=== PATIENT | male | born 1950 | race Caucasian/White ===

== ENCOUNTER 2023-08-12 20:12 | Outpatient (CLI) | payer MEDICARE, BC, SELFPAY | END 2023-08-12 20:13 | disposition home or self-care (01) | LOC: SLEEP 20:15 | PROVIDERS: PCP Student in an Organized Health Care Education/Training Program; Visit Provider Nurse Practitioner | DX: G47.33 Obstructive sleep apnea (adult) (pediatric) (principal) | CPT/HCPCS: 95811 ==

== ENCOUNTER 2024-06-25 07:52 | Outpatient (CLI) | payer MEDICARE, BC, SELFPAY ==
[2024-06-25 10:14] LABS: Albumin* 3.6 g/dL (3.3-5.0)
[2024-06-25 10:15] LABS: Hematocrit 41.2 % (37.0-53.0); Hemoglobin* 13.2 gm/dL (13.5-17.5); Mean Corpuscular HGB Conc 32 gm/dL (32-36); Mean Corpuscular Hemoglobin 30 pg (26-34); Mean Corpuscular Volume 93 fL (80-100); Platelet Count* 61 K/uL (140-440); Red Blood Count 4.41 m/uL (4.30-5.90); White Blood Count* 2.58 K/uL (4.50-11.00)
[2024-06-25 10:16] LABS: Bilirubin Direct* 0.3 mg/dL (0.0-0.5); Bilirubin Total* 1.6 mg/dL (0.1-1.5); Total Protein* 6.5 g/dL (6.0-8.3)
[2024-06-25 10:17] LABS: Alanine Aminotransferase* 66 U/L (4-50); Alkaline Phosphatase* 78 U/L (40-150); Aspartate Amino Transferase* 44 U/L (12-35)
[2024-06-25 10:30] LABS: Slide Review Reflex No
[2024-06-26 23:01] LABS: Immunoglobulin G 1416 mg/dL (768-1632)
== END 2024-06-25 07:53 | disposition home or self-care (01) ==
LOC: NPINS 07:57
PROVIDERS: PCP Internal Medicine; Visit Provider Internal Medicine
DX: K75.4 Autoimmune hepatitis (principal)
CPT/HCPCS: 80076; 82787; 85027

== ENCOUNTER 2024-06-25 08:05 | Outpatient (CLI) | payer MEDICARE, BC, SELFPAY | END 2024-06-25 08:06 | disposition home or self-care (01) | LOC: NFLDREF 08:06 | PROVIDERS: PCP Internal Medicine; Visit Provider Internal Medicine | DX: E03.9 Hypothyroidism, unspecified (principal) | CPT/HCPCS: 84443 ==

== ENCOUNTER 2024-08-04 07:49 | Outpatient (CLI) | payer MEDICARE, BC, SELFPAY ==
[2024-08-04 11:33] LABS: Hemoglobin* 13.5 gm/dL (13.5-17.5); Mean Corpuscular HGB Conc 32 gm/dL (32-36); Mean Corpuscular Hemoglobin 30 pg (26-34); Mean Corpuscular Volume 94 fL (80-100); Platelet Count* 63 K/uL (140-440); Red Blood Count 4.45 m/uL (4.30-5.90); White Blood Count* 2.32 K/uL (4.50-11.00)
[2024-08-04 11:43] LABS: Slide Review Reflex No
[2024-08-04 11:44] LABS: Albumin* 3.8 g/dL (3.3-5.0)
[2024-08-04 11:47] LABS: Alanine Aminotransferase* 83 U/L (4-50); Alkaline Phosphatase* 68 U/L (40-150); Aspartate Amino Transferase* 47 U/L (12-35); Bilirubin Direct* 0.5 mg/dL (0.0-0.5); Bilirubin Total* 2.1 mg/dL (0.1-1.5); Total Protein* 6.6 g/dL (6.0-8.3)
[2024-08-06 04:14] LABS: Immunoglobulin G 1354 mg/dL (768-1632)
== END 2024-08-04 07:50 | disposition home or self-care (01) ==
LOC: NPINS 07:52
PROVIDERS: PCP Internal Medicine; Visit Provider Internal Medicine
DX: K75.4 Autoimmune hepatitis (principal)
CPT/HCPCS: 80076; 82787; 84450; 84460; 85027

== ENCOUNTER 2024-10-16 08:23 | Outpatient (CLI) | payer MEDICARE, BC, SELFPAY ==
[2024-10-16 10:03] LABS: Basophils Percent Auto 0.9 % (0.0-3.0); Eosinophils Percent Auto 2.6 % (0.0-7.0); Hemoglobin* 13.7 gm/dL (13.5-17.5); Lymphocytes Percent Auto 15.1 % (20-44); Mean Corpuscular HGB Conc 32 gm/dL (32-36); Mean Corpuscular Hemoglobin 30 pg (26-34); Mean Corpuscular Volume 94 fL (80-100); Monocytes Percent Auto 9.9 % (0.0-11.0); Neutrophils Percent Auto 71.5 % (42.0-72.0); Platelet Count* 67 K/uL (140-440); RDW Coefficient of Variation % 15.5 % (11.5-15.5); Red Blood Count 4.59 m/uL (4.30-5.90); White Blood Count* 3.45 K/uL (4.50-11.00)
[2024-10-16 10:04] LABS: Slide Review Reflex No
[2024-10-16 11:05] LABS: Alanine Aminotransferase* 108 U/L (4-50); Aspartate Amino Transferase* 67 U/L (12-35)
[2024-10-17 23:26] LABS: Immunoglobulin G 1562 mg/dL (768-1632)
== END 2024-10-16 08:24 | disposition home or self-care (01) ==
LOC: NPINS 08:27
PROVIDERS: PCP Internal Medicine; Visit Provider Internal Medicine
DX: K75.4 Autoimmune hepatitis (principal)
CPT/HCPCS: 82787; 84450; 84460; 85025

== ENCOUNTER 2024-10-28 08:33 | Outpatient (CLI) | payer MEDICARE, BC, SELFPAY ==
[2024-10-28 08:50] LABS: Basophils Percent Auto 0.7 % (0.0-3.0); Eosinophils Percent Auto 3.5 % (0.0-7.0); Hematocrit 41.9 % (37.0-53.0); Hemoglobin* 13.6 gm/dL (13.5-17.5); Lymphocytes Percent Auto 15.2 % (20-44); Mean Corpuscular HGB Conc 33 gm/dL (32-36); Mean Corpuscular Hemoglobin 31 pg (26-34); Mean Corpuscular Volume 95 fL (80-100); Monocytes Percent Auto 9.6 % (0.0-11.0); Platelet Count* 61 K/uL (140-440); RDW Coefficient of Variation % 15.3 % (11.5-15.5); Red Blood Count 4.43 m/uL (4.30-5.90); White Blood Count* 2.82 K/uL (4.50-11.00)
[2024-10-28 08:51] LABS: Slide Review Reflex No
[2024-10-28 09:05] LABS: Alanine Aminotransferase* 113 U/L (4-50); Aspartate Amino Transferase* 79 U/L (12-35)
[2024-10-29 11:22] LABS: Immunoglobulin G 1567 mg/dL (768-1632)
== END 2024-10-28 08:34 | disposition home or self-care (01) ==
LOC: LAB 08:34
PROVIDERS: PCP Internal Medicine; Visit Provider Internal Medicine
DX: K75.4 Autoimmune hepatitis (principal)
CPT/HCPCS: 36415; 82787; 84450; 84460; 85025

== ENCOUNTER 2025-02-25 19:16 | Inpatient (IN) | payer MEDICARE, BC, SELFPAY ==
[2025-02-25] VITALS (11 sets, daily range): BP systolic 131–172; BP diastolic 61–85; PULSE 71–76; RESP 16; TEMP 38.2–38.7; O2SAT 90–96; BMI 28.6
--- OUTSIDE RECORDS SUMMARY | 2025-02-25 19:18 | XMS_ITS | Clinical Summary ---
Author Organization [facility] Address [address] [place] [id number] Care Team Providers Care Box Packer Name Role Phone Anika Arnold DO Primary Care Provider [phone] Allergies No known active allergies Medications multivitamin (MVI) tablet Take 1 tablet by mouth once daily. 0 0 Active diclofenac topical (VOLTAREN) 1 % gel Apply 4 grams to affected area(s) by topical route 4 times daily. 1 Active VITAMIN K2 ORAL Take 1 Tablet by mouth once daily. Active ascorbic acid, vitamin C, (VITAMIN C) 1,000 mg tablet Take 2,000 mg by mouth. Active cholecalciferol, Vitamin D3, 5,000 unit tab tablet Take 125 mcg by mouth. Active predniSONE (DELTASONE) 5 mg tablet Take 1 Tablet by mouth once daily. 2 Active lactobacillus acidophilus & bulgar (Lactinex) chewable tabletIndication s:Non-alcoholic cirrhosis (HC),Autoimmune hepatitis (HC),High risk medication use Chew 1 Tablet by mouth two times daily with meals. 180 Tablet 3 4 Active omeprazole (PRILOSEC) 40 mg Delayed-Release capsuleIndicatio ns:Abdominal pain, epigastric Take 1 Capsule (40 mg) by mouth once daily before a meal. 90 Capsule 3 5 Active carvediloL (COREG) 25 mg tabletIndication s:HTN (hypertension) Take 1 Tablet (25 mg) by mouth two times daily with meals. 180 Tablet 3 5 Active levothyroxine (SYNTHROID) 137 mcg tabletIndication s:Hypothyroidism (acquired) Take 1 Tablet (137 mcg) by mouth before breakfast. 90 Tablet 3 5 Active losartan (COZAAR) 25 mg tabletIndication s:HTN (hypertension) Take 1 Tablet (25 mg) by mouth once daily. 90 Tablet 3 5 Active mycophenolate (CELLCEPT) 250 mg capsule Take 750 mg by mouth. 5 12/02/19 26 Active BIPAPIndications :Obstructive sleep apnea syndrome BIPAP machine (with auto capability) (E0470) for home use at pressure: IPAP 16 cmH2O, EPAP 11 cmH2O. Choice of mask (A7030, A7034, or A7027) w/full face cushion (A7031) x1/mo, nasal cushion (A7032) x2/mo, nasal pillows (A7033) x 2/mo, oral cushion (A7028) x 2/mo, or nasal pillows (A7029) 2/mo; Heated humidifier (E0562) x 1/5 year, Humidifier chamber (A7046) x 1/6mo, Chinstrap (A7036) x 1/6mo, Tubing (A4604 or A7037) x 1/3mo, Headgear (A7035) x 1/6mo, Filters: Disposable (A7038) x 2pk/1mo & Reusable (A7039) x 1pk/6mo; Length of Need: 99 months; Frequency of use: Daily DME: [employer] 1 Each 11 5 Active Active Problems Problem Noted Date Diagnosed Date Renal cell carcinoma of left kidney 12/29/2021 Overview (12/29/2021): Mass removed in 2021. [facility] managing. No metastasis. Clear cell type, grade 2 (of 4). 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 03/15/2016 Polyp of colon 07/15/2010 Overview (12/29/2021): Colonoscopy 07/2010 polyp repeat in 3 years Colonoscopy 11/2013 polyp repeat in 5 years Colonoscopy 05/2019 polyps, repeat in 5 years Colonoscopy 07/2010 polyp repeat in 3 years Colonoscopy 11/2013 polyp repeat in 5 years Colonoscopy 05/2019 polyps, repeat in 5 years Resolved Problems Problem Noted Date Diagnosed Date Resolved Date Encounter for long-term (cur rent) use of insulin 12/29/2021 12/29/2021 Encounters Date Type Department Care Team Description 12/23/2024 3:00 PM CDT Telemedicine [facility] [place] [address] [place] [address] Digna Roy PA Sleep Follow-up 12/23/2024 Travel from Last 3 Months Immunizations Immunization Administration Dates Next Due HepA-HepB (Twinrix) 09/21/2017,10/27/2016,2016 Hepatitis A (Adult) 09/25/2016 Hepatitis B (Adult) 09/25/2016 Influenza RIV4 (Age 18+ Year s) PRESERV FREE 03/06/2020 Influenza, High-dose Inactivated 018,02/25/2017,02/25/2017,2015 Influenza, IIV3 (Age >=3 years) 05/05/2010,03/07 Influenza, IIV4 04/17/2014 Influenza, Inactivated IIV3 (Age 65+ Years) Preserv Free 02/20/2019 Pneumococcal Poly,23-Valent (Pneumovax) 09/21/2017 Pneumococcal conj 13-Valent (Prevnar 13) 03/01/2016 Td (Age >=7 Years) 05/11/2006 Tdap 06/16/2020,04/17/2014,05/11/2006 Zoster (Zostavax-ZVL, live) 04/17/2014 Family History Medical History Relation Name Comments Diabetes Father Hypertension Father Hypertension Mother Other Mother colon polyps Lupus Sister Relation Name Status Comments Father Mother Alive Sister Social History Tobacco Use Types Packs/Day Years Used Date Smoking Tobacco: Never Smokeless Tobacco: Never Tobacco Cessation:Counseling Given: Yes Alcohol Use Standard Drinks/Week Comments No 0 (1 standard drink = 0.6 oz pur e alcohol) PHQ-2 Answer Date Recorded PHQ-2 TOTAL SCORE 0 06/10/2024 Social Connections Answer Date Recorded Do you often feel lonely or isolated from those around you? 0 06/09/2024 Financial Resource Strain Answer Date R ecorded Difficulty of Paying Living Expenses 3 06/09/2024 Difficulty of Paying Living Expenses Not on file 06/09/2024 Food Insecurity Answer Date Recorded Do you worry your food will run out before you are able to buy more? 1 06/09/2024 Transportation Needs Answer Date Record ed Does lack of transportation keep you from medica l appointments? 1 06/09/2024 Does lack of transportation keep you from work, meetings or getting things that you need? 1 06/09/2024 Housing Stability Answer Date Recorded What is your housing situation today? 1 06/09/2024 Utilities Answer Date Recorded Do you have trouble paying f or utilities (for example, heat, electricity, water, phone)? 1 06/09/2024 Sex and Gender Information Value Date Recorded Sex Assigned at Not on file Legal Sex Male 6:29 AM MASKING MACHINE OPERATOR Gender Identity Not on file Sexual Orientation Not on file Obstetrics History Last Filed Vital Signs Vital Sign Reading Time Taken Comments Blood Pressure 139/78 06/10/2024 7:30 AM MASKING MACHINE OPERATOR rec heck Pulse 52 06/10/2024 7:26 AM MASKING MACHINE OPERATOR Temperature 36.6 C (97.8 F) 04/18/2021 7:10 AM MASKING MACHINE OPERATOR Respiratory Rate 18 04/01/2019 7:54 AM CDT Oxygen Saturation 98% 06/10/2024 7:26 AM MASKING MACHINE OPERATOR Inhaled Oxygen Concentration - - Weight 96.3 kg (212 lb 6.4 oz) 06/10/2024 7:26 A M MASKING MACHINE OPERATOR Height 179.5 cm (5' 10.67) 06/10/2024 7:[address] Body Mass Index 29.9 06/10/2024 7:26 AM MASKING MACHINE OPERATOR Plan of Treatment Health Maintenance Due Date Last Done Comments COVID-19 vaccine series (#1) 1955 Zoster (shingles) series for age 50+ (1 of 2) 06/12/2014 04/17/2014 Colonoscopy through age 75 05/16/202405/16, 05/16/2019, 05/16/2019, Additional history exists Influenza Vaccine (#1) 2025 , 02/20/2019, 01/23/2018, Additional history exists RSV vaccine for adults or (1 - 1-dose 75+ series) 2025 BMI (ht and wt on same day) for age 18+ 06/10/2025 06/10/2024, 06/11/2023, 06/08/2022, Additional history exists Depression screening for age 12+ 06/10/2025 06/10/2024, 06/10/2024, 06/11/2023, Additional history exists Medicare Wellness for age 65+ 06/11/2025, 06/11/2023, 06/08/2022, Additional history exists Lipids for age 45-75 06/08/2027 06/08/2022, 04/06/2021, 01/23/2019, Additional history exists Tetanus booster 06/16/2030 06/16/2020, 04/04, 05/11/2006, Additional history exists Hepatitis C screening for ag e 18-79 Completed 03/22/2016 (Completed outsid e of Ricky) Hepatitis B series for 19+ Completed 09/21, 10/27/2016, 09/25/2016, Additional history exists Pneumococcal series for age 50+ Completed 8, 03/01/2016 Procedures Procedure Name Priority Date/Time Associated Diagnosis Comments LC LIPID PANEL AND CHOL/HDL RATIO Routine 06/08/2022 8:05 AM MASKING MACHINE OPERATOR Hyperlipidemia, unspecified hyperlipidemia type COLONOSCOPY 05/16/2019 9:12 AM MASKING MACHINE OPERATOR from Last 3 Months or Most Recently Relevant to Health Maintenance Results * LC LIPID PANEL AND CHOL/HDL RATIO (06/08/2022 8:05 AM MASKING MACHINE OPERATOR) Cholesterol, Total 146 100 - 199 mg/dL 06/13/2022 2:07 AM MASKING MACHINE OPERATOR [facility]) Triglycerides 82 0 - 149 mg/dL 06/13/2022 2:07 AM [facility] ([facility]) HDL Cholesterol 41 >39 mg/dL 2:07 AM [facility] ([facility]) VLDL Cholesterol Nasim 16 5 - 40 mg/dL 06/13/2022 2:07 AM [facility] ([facility]) LDL Chol Calc ([facility]) 89 0 - 99 mg/dL 06/13/2022 2:07 AM [facility] ([facility]) T. Chol/HDL Ratio 3.6 0.0 - 5.0 ratio 06/13/2022 2:07 AM [facility] ([facility]) Comment: T. Chol/HDL Ratio Men Women 1/2 Avg.Risk 3.4 3.3 Avg.Risk 5.0 4.4 2X Avg.Risk 9.6 7.1 3X Avg.Risk 23.4 11.0 Blood BLOOD SPECIMEN / Unknown Venipuncture / Unknown 06/08/2022 8:05 AM MASKING MACHINE OPERATOR 06/08/2022 8:11 AM MASKING MACHINE OPERATOR Narrative [facility] ([facility]) - 06/13/2022 2:07 AM MASKING MACHINE OPERATOR Performed at: [address] [place] [address] [employer] [address] [place] [id number] Small Engine Technician: Joselo Singh MD, Phone: [phone] us Anika Arnold DO SEND OUTS Final Result [facility] ([facility]) [address] [place] [address], * COLONOSCOPY (05/16/2019 9:12 AM MASKING MACHINE OPERATOR) 05/16/2019 9:12 AM MASKING MACHINE OPERATOR Narrative Transcriptions Mitchel Church MD - 05/16/2019 10:20 AM CST Patient Name: Jevon Bhagat Procedure Date: 05/16/2019 Gender: Male Date of : 1950 Admit Type: Outpatient Procedure: Colonoscopy Proceduralist: Mitchel Church MD , Jodie Olivia (Nurse) Indications/Pre-Op Diagnosis: Surveillance: Personal history ofadenomatous polyps on last colonoscopy 5 years ago, Last colonoscopy: November 2013 Medications: Fentanyl 100 micrograms IV, Midazolam 2 mgIV, The level of sedation administered wasmoderate Procedure Description: The patient had risks, benefits and alternatives explained to andgave informed consent. The patient had a stable cardiopulmonary status and judged an adequate candidate for conscious sedation. The [id number] was passed through the anus and advanced tothe cecum, identified by appendiceal orifice and ileocecal valve. The colonoscopy was performed without difficulty. The patient toleratedthe procedure well. The quality of the bowel preparation was good. The ileocecal valve, appendiceal orifice, and rectum were photographed. Complications: No immediate complications. Estimated Blood Loss & Specimen: Estimated blood loss: none. Specimen collected - Yes and sent to Laboratory Findings: The perianal and digital rectal examinations were normal. Two sessile polyps were found in the transverse colon. The polypswere 3 mm in size. These polyps were removed with a cold biopsy forceps. Resection and retrieval were complete. A 4 mm polyp was found in the descending colon. The polyp wassessile. The polyp was removed with a cold snare. Resection and retrieval were complete. Non-bleeding internal hemorrhoids were found during retroflexion. The hemorrhoids were mild. Impressions/Post-Op Diagnosis: - Two 3 mm polyps in the transverse colon, removed with a cold biopsy forceps. Resected and retrieved. - One 4 mm polyp in the descending colon, removed with a cold snare. Resected and retrieved. - Non-bleeding internal hemorrhoids. Recommendation: - Patient has a contact number available for emergencies. The signsand symptoms of potential delayed complications were discussed with the patient. Return to normal activities tomorrow. Written discharge instructions were provided to the patient. - Resume previous diet. - Continue present medications. - Await pathology results. - Repeat colonoscopy is recommended. The colonoscopy date will be determined after pathology results from today's exam become available for review. Moderate Sedation: Moderate (conscious) sedation was administered by the endoscopy nurse and supervised by the endoscopist. The following parameters were monitored: oxygen saturation, heart rate, respiratory rate, blood pressure, adequacy of pulmonary ventilation and reponse to care. Please refer to the patien'ts medical record flowsheets and nursing notes for moderate sedation details. Total physician intraservice time was 24 minutes. Mitchel Church MD 05/16/2019 10:20:33 AM This report has been signed electronically. Note Initiated On: 05/16/2019 9:12 AM Procedure Code(s): --- Professional --- 33676, Colonoscopy, flexible; with removalof tumor(s), polyp(s), or other lesion(s) bysnare technique 61221, 59, Colonoscopy, flexible; withbiopsy, single or multiple Diagnosis Code(s): --- Professional --- Z86.010, Personal history of colonicpolyps D12.3, Benign neoplasm of transverse colon (hepatic flexure or splenic flexure) D12.4, Benign neoplasm of descending colon K64.8, Other hemorrhoids CPT copyright 2018 [employer]. All rights reserved. The codes documented in this report are preliminary and upon coder operator reviewmay be revised to meet current compliance requirements. Scope In: 9:51:44 AM Scope Withdrawal Time 0 hours 12 minutes 50 seconds Scope Out: 10:13:17 AM us Mitchel Church MD PROCEDURE ORD Final Res ult from Last 3 Months or Most Recently Relevant to Health Maintenance Insurance MEDICARE PB ONLY MEDICARE PART A HB ONLY MEDICARE PART B HB ONLY [facility] FED EMP Member Subscriber Plan / Payer (Ef fective 2024-Present) Name:Jevon Bhagat Relation to Subscriber:Spouse Name:Neli Bhagat Date of :1954 (Home) [address]: [address] [place] [address] Payer ID:[id number] (NAIC) Group ID:[id number] Type:Not on file Address: [address] [address] [place] [address] Care Teams Box Packer Relationship Specialty Start Date End Date Anika Arnold DO [address] [place] [address] PCP - General Family Practice 12/29/21
--- OUTSIDE RECORDS SUMMARY | 2025-02-25 19:18 | XMS_ITS | Clinical Summary ---
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 For routine questions regarding patient records, call [phone] during business hours, M-F 8:00 AM - 5:00 PM Central Time. Record requests for emergency care only can be directed to [phone] at any time.[facility] Allergies No known active allergies Medications * This document contains information received from the source organization and may not represent a complete record from that organization. multivitamin tablet Take 1 tablet by mouth every morning. 0 Active ascorbic acid, vitamin C, (VITAMIN C) 1,000 mg tablet Take 2,000 mg by mouth daily. Active levothyroxine (SYNTHROID, LEVOTHROID) 125 mcg tablet TAKE ONE TABLET BY MOUTH ONE TIME DAILY 90 tablet 3 2 Active Additional Information Patient taking differently: 125 mcg oral Daily before morning meal, Reported on 07/29/2021 cholecalciferol (Vitamin D3) 125 mcg (5,000 Unit) tablet Take 125 mcg by mouth 2 (two) times a day. Active zinc gluconate 50 mg tablet Take 50 mg by mouth daily. Active VITAMIN K2 ORAL Take 1 tablet by mouth daily. Active lactobacillus acidophilus & bulgar 1 million cell chewable tablet CHEW AND SWALLOW ONE TABLET BY MOUTH ONE TIME DAILY BEFORE DINNER. 3 Active carvediloL (COREG) 25 mg tabletIndication s:Hepatitis Autoimmune (HCC),Thrombocyt openia,Other Cirrhosis Of Liver (HCC) Take 1 tablet (25 mg total) by mouth 2 (two) times a day. 180 tablet 2 3 Active losartan (COZAAR) 25 mg tabletIndication s:Hepatitis Autoimmune (HCC),Thrombocyt openia,Other Cirrhosis Of Liver (HCC) Take 1 tablet (25 mg total) by mouth daily. 90 tablet 3 3 Active omeprazole (PriLOSEC) [address] capsuleIndicatio ns:Hepatitis Autoimmune (HCC),Gastroesop hageal Reflux Disease Without Esophagitis Take 1 capsule (40 mg total) by mouth every morning before breakfast. 90 capsule 2 3 Active diclofenac sodium (VOLTAREN) 1 % gel Apply 4 g topically 4 (four) times a day. to affected area(s) 100 g 3 4 Active predniSONE (Deltasone) 5 mg tabletIndication s:Hepatitis Autoimmune (HCC),Thrombocyt openia,Other Cirrhosis Of Liver (HCC) TAKE ONE TABLET BY MOUTH ONE TIME DAILY 90 tablet 3 4 Active mycophenolate (CellCept) 250 mg capsuleIndicatio ns:Hepatitis Autoimmune (HCC),Thrombocyt openia,Other Cirrhosis Of Liver (HCC) Take 3 capsules (750 mg total) by mouth 2 (two) times a day. Do not break, cut, or open capsules. 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 Mass Adrenal Bilateral 03/15/2016 Polyp Colon 07/15/2010 Overview (07/29/2021): Colonoscopy 07/2010 polyp repeat in 3 years Colonoscopy 11/2013 polyp repeat in 5 years Colonoscopy 05/2019 polyps, repeat in 5 years Resolved Problems Problem Noted Date Diagnosed Date Resolved Date Hepatitis Autoimmune 01/31/2018 022 Immunizations Immunization Administration Dates Next Due HZV (ZOSTAVAX) 04/17/2014 HepA / HepB 09/21/2017,10/27/2016,09/16/2016 HepA Adult 09/25/2016 HepB Adult 09/25/2016 Influenza TIV (IM) 02/20/2019 Influenza, Seasonal, Injectable 05/05/2010,03/07 PCV13 03/01/2016 PPSV23 09/21/2017 Td (Adult), adsorbed 05/11/2006 Tdap 06/16/2020,04/17/2014,05/11/2006 influenza trivalent high dose (HD)(PF) 8,02/25/2017,03/01/2016 influenza vaccine QV(FLUBLOK ) (18 years or older) (PF) 03/06/2020 influenza vaccine quad (FLUZ ONE/FLUARIX) (6 months and older)(PF) 04/17/2014 Family History Medical History Relation Name Comments Hypertension Father yves gleason Relation Name Status Comments Father yves gleason Alive Social History Tobacco Use Types Packs/Day Years Used Date Smoking Tobacco: Never Smokeless Tobacco: Never Tobacco Cessation:Counseling Given: Not Answered Alcohol Use Standard Drinks/Week Comments Never 0 (1 standard drink = 0.6 oz pur e alcohol) [facility] Utilities Answer Date Recorded In the past 12 months has e [employer], gas, oil, or water [employer] threatened to shut off services in your home? No 03/19/2024 Humiliation, Afraid, Rape, and Kick questionnair e Answer Date Recorded Within the last year, have y ou been afraid of your partner or ex-partner? Patient declined 10/26/2022 Within the last year, have y ou been humiliated or emotionally abused in other ways by your partner or ex-partner? Patient declined 10/26/2022 Within the last year, have y ou been kicked, hit, slapped, or otherwise physically hurt by your partner or ex-partner? Patient declined 10/26/2022 Within the last year, have y ou been raped or forced to have any kind of sexual activity by your partner or ex-partner? Patient declined 10/26/2022 Hunger Vital Sign Answer Date Recorded Within the past 12 months, y ou worried that your food would run out before you got the money to buy more. Never true 03/19/20 24 Within the past 12 months, t he food you bought just didn't last and you didn't have money to get more. Never true 03/19/2024 PRAPARE - Transportation Answer Date Re corded In the past 12 months, has l ack of transportation kept you from medical appointments or from getting medications? No 03/04 In the past 12 months, has l ack of transportation kept you from meetings, work, or from getting things needed for daily living? No 03/19/2024 Housing Stability Answer Date Recorded What is your living situation today? I have a [facility] place to live 03/19/2024 Education Answer Date Recorded What is the highest level of school you have completed or the highest degree you have received? 12th grade 12/14/2018 Sex and Gender Information Value Date Recorded Sex Assigned at Male 02/08/2021 8:34 AM CDT Legal Sex Male 11:27 PM [employer] Gender Identity Male 12/13/2017 9:27 AM CDT Sexual Orientation Straight 12/13/2017 9: 27 AM CDT Last Filed Vital Signs Vital Sign Reading Time Taken Comments Blood Pressure 140/69 08/27/2024 10:16 AM CDT Pulse 49 08/27/2024 10:16 AM CDT Temperature 36.5 C (97.7 F) 08/27/2024 10:16 AM CDT Respiratory Rate 18 08/27/2024 10:16 AM CDT Oxygen Saturation 95% 08/01/2021 3:30 PM [employer] Inhaled Oxygen Concentration - - Weight 94.6 kg (208 lb 8.9 oz) 08/27/2024 10:12 AM CDT Height 185.1 cm (6' 0.87) 08/27/2024 10:12 AM C DT Body Mass Index 27.61 08/27/2024 10:12 AM CDT Plan of Treatment Upcoming Encounters Date Type Department Care Team (Late st Contact Info) Description 03/19/2025 10:50 AM CDT Appointment Department of Laboratory Medicine and Pathology, [facility], in [place], [place] [address] [place] [address] Sonja Gibson M.B.B.S. [address] [place] [address] 03/19/2025 11:30 AM CDT Appointment Department of Radiology, [facility], in [place], [place] [address] [place] [address] Sonja Gibson M.B.B.S. [address] [place] [address] 03/27/2025 1:40 PM CDT Virtual Visit Division of Gastroenterology in [place], [place] [address] [place] [address] Sonja Gibson M.B.B.S. [address] [place] [address] Health Maintenance Due Date Last Done Comments CT Colonography 1950 Cologuard 1950 COVID-19 Vaccine (#1) 1955 Zoster Vaccines (1 of 2) 06/12/2014 04/17/2014 Colonoscopy 05/16/2024 05/16/2019, 06/2013 (Performed elsewhere) Colorectal Cancer Surveillance 05/16/2024 Depression Screening (Annual PHQ-2) 06/04/2024 Fall Risk Screen (Annual) 06/04/2024 Influenza Vaccine (#1) 2025 , 02/20/2019, 01/23/2018, Additional history exists RSV vaccine - (32-36 weeks) or 60+ years (1 - 1-dose 75+ series) 2025 Abdominal Ultrasound 02/27/2025 08/27/2024, 08/26/2024, 03/21/2024, Additional history exists Thyroid Stimulating Hormone (TSH) test for thyroid function 06/25/2025 06/25/2024, 08/02/2023, 06/11/2023, Additional history exists Creatinine Level (Kidney Function Test) 08/26/2025 08/26/2024, 06/10/2024, 03/21/2024, Additional history exists Potassium Level 08/26/2025 08/26/2024, 12/2024, 03/21/2024, Additional history exists Sodium Level 08/26/2025 08/26/2024, 12/2024, 03/21/2024, Additional history exists Fasting Glucose for Diabetes Screening 08/27/2027 08/26/2024, 06/10/2024, 03/21/2024, Additional history exists DTaP,Tdap,and Td Vaccines (4 - Td or Tdap) 06/16/2030 06/16/2020, 04/17/2014, 05/11/2006, Additional history exists Hepatitis B Screening Discontinued 03/22/2016 Hepatitis C Screening Completed 03/22/2016 Hepatitis A Vaccines Completed 09/21/2017, 10/27/2016, 09/25/2016, Additional history exists Hepatitis B Vaccines Completed 09/21/2017, 10/27/2016, 09/25/2016, Additional history exists Pneumococcal vaccine (50+ years) Completed 09/21/2017, 03/01/2016 Abdominal Aortic Aneurysm (AAA) Screen Discontinued 08/27/2024, 03/21/2024, 09/13/2023, Additional history exists HPV Vaccines Aged Out No longer eligi ble based on patient's age to complete this topic IPV Vaccines Aged Out No longer eligi ble based on patient's age to complete this topic Procedures Procedure Name Priority Date/Time Associated Diagnosis Comments US ABDOMEN COMPLETE RAD - Routine (most inpatients and all outpatients) 08/27/2024 9:44 AM CDT Unspecified Cirrhosis Of Liver (HCC) BASIC METABOLIC PANEL, S/P Routine 08/26/2024 12:55 PM CDT 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 Thrombocytopenia Gastroesophageal Reflux Disease Without Esophagitis Esophageal Varices Without Bleeding (HCC) THYROID-STIMULATI NG HORMONE-SENSITIVE (S-TSH) Routine 06/25/2024 7:31 AM [employer] HCV AB SCRN W/REFLEX TO HCV PCR, S Routine 03/22/2016 7:57 AM CDT HEPATITIS B SURFACE ANTIGEN Routine 03/22/2016 7:57 AM CDT from Last 3 Months or Most Recently Relevant to Health Maintenance Results * US Abdomen Complete (08/27/2024 9:44 AM CDT) Anatomical Region Laterality Modality Abdomen, Ultrasound RST LOS, Ultrasound ARZ LOS, Ultrasound FLA LOS N/A Ultrasound Impressions 08/27/2024 10:17 AM CDT 1. Coarse hepatic echotexture consistent with chronic parenchymal disease. No focal hepatic observation identified sonographically. LI-RADS 1B. 2. Splenomegaly. Narrative 08/27/2024 10:17 AM CDT EXAM: US ABDOMEN COMPLETE COMPARISON: Abdominal MR 08/26/2024. Abdominal ultrasound 03/21/2024. FINDINGS: Liver: Coarse echotexture consistent with chronic parenchymal disease. No focal hepatic observation identified sonographically. Ultrasound LI-RADS score is as follows: Ultrasound Category: US-1: Negative (No US evidence of HCC). Recommend continued routine surveillance. Visualization Score: B: Moderate limitations (limitations may obscure small masses, especially < 1 cm). Ultrasound LI-RADS is a standardized system for imaging technique, interpretation, reporting, and data collection for screening or surveillance ultrasound exams in patients at risk for developing HCC. Ultrasound LI-RADS is supported and endorsed by the [employer]. More information can be found on the following link [email or web address] Gallbladder: Normal. Intrahepatic ducts: Not dilated. Common duct: Not dilated. Pancreas: Normal where seen. Right kidney: Length: 11.1 cm. Normal echogenicity. No hydronephrosis. Likely exophytic renal cyst measuring up to 3.3 cm. Left kidney: Length: 11.8 cm. Normal echogenicity. No hydronephrosis. Post ablation changes, better characterized on MR abdomen 08/26/2024. Small renal cysts. Spleen: Splenomegaly. Spleen length: 16.3 cm, previously 17.7 cm on 03/21/2024. Aorta: Normal caliber. IVC: Normal where seen. Ascites: None. Procedure Note Jaykel, Killian J, M.D. - 08/27/2024 EXAM: US ABDOMEN COMPLETE COMPARISON: Abdominal MR 08/26/2024. Abdominal ultrasound 03/21/2024. FINDINGS: Liver: Coarse echotexture consistent with chronic parenchymal disease. Nofocal hepatic observation identified sonographically. Ultrasound LI-RADS score is as follows: Ultrasound Category: US-1: Negative (No US evidence of HCC). Recommendcontinued routine surveillance. Visualization Score: B: Moderate limitations (limitations may obscuresmall masses, especially < 1 cm). Ultrasound LI-RADS is a standardized system for imaging technique,interpretation, reporting, and data collection for screening orsurveillance ultrasound exams in patients at risk for developing HCC.Ultrasound LI-RADS is supported and endorsed by the [employer]. More information can be found on thefollowing [email or web address] Core.[email or web address] Gallbladder: Normal. Intrahepatic ducts: Not dilated. Common duct: Not dilated. Pancreas: Normal where seen. Right kidney: Length: 11.1 cm. Normal echogenicity. No hydronephrosis. Likely exophyticrenal cyst measuring up to 3.3 cm. Left kidney: Length: 11.8 cm. Normal echogenicity. No hydronephrosis. Post ablationchanges, better characterized on MR abdomen 08/26/2024. Small renalcysts. Spleen: Splenomegaly. Spleen length: 16.3 cm, previously 17.7 cm on03/21/2024. Aorta: Normal caliber. IVC: Normal where seen. Ascites: None. IMPRESSION: 1. Coarse hepatic echotexture consistent with chronic parenchymal disease.No focal hepatic observation identified sonographically. LI-RADS 1B. 2. Splenomegaly. us Basil Sawyer M.D. G US PROCEDURES Final Result * Basic Metabolic Panel (08/26/2024 12:55 PM CDT) Potassium, S 4.4 3.6 - 5.2 mmol/L 08/26/2024 3:26 PM CDT DTL Sodium, S 141 135 - 145 mmol/L 08/26/2024 3:26 PM CDT DTL Chloride, S 105 98 - 107 mmol/L 08/26/2024 3:26 PM CDT DTL Bicarbonate, S 24 22 - 29 mmol/L 08/26/2024 3:26 PM CDT DTL Anion Gap 12 7 - 15 08/26/2024 3:26 PM CDT DTL BUN (Blood Urea Nitrogen), S 12 8 - 24 mg/dL 08/26/2024 3:26 PM CDT DTL Creatinine 0.85 0.74 - 1.35 mg/dL 08/26/2024 3:26 PM CDT DTL Estimated GFR (eGFR) >90 >=60 mL/min/BSA 08/26/2024 3:26 PM CDT DTL Comment: Estimated GFR calculated using the 2020 CKD_EPI creatinine equation. Calcium, Total, S 9.4 8.8 - 10.2 mg/dL 08/26/2024 3:26 PM CDT DTL Glucose, S 105 70 - 140 mg/dL 08/26/2024 3:26 PM CDT DTL Blood (Blood, Venous) 08/26/2024 12:55 PM CDT 08/26/2024 1:40 PM CDT Sonja Muhammad LAB BLOOD ADD-ON Final Result [facility] [address] [place] [address], [facility] [address] [place] [address] * S-TSH (Thyroid-Stimulating Hormone - Sensitive) (06/25/2024 7:31 AM [employer]) EXT TSH, Sensitive 3.290 0.270 - 4.200 uIU/ML [facility] 06/25/2024 7:3 1 AM [employer] Narrative [facility] - 06/25/2024 2:00 PM [employer] External results verified in Extract by Jamila Hidalgo on 06/25/2024 at 01:59 PM. us Ordering Provider External M.D. LAB BLOOD ADD-ON Final Result Performing Organization Address [facility]/ZIP Co de Phone Number [facility] [address] [phone] * HCV AB Scrn w/Reflex to HCV PCR, S (03/22/2016 7:57 AM CDT) HCV Ab Screen, S Negative Negative [facility] Comment:Mefamx-cd-ajqciq rat io is <1.00. 03/22/2016 7:57 AM CDT 03/22/2016 7:57 AM CDT us Vianey Dillard APRN, C.N.P. LAB MICROBIOLOGY - BL OOD ORDERABLES Final Result Performing Organization Address [facility] Co de Phone Number [facility] [address] * Hepatitis B Surface Antigen (03/22/2016 7:57 AM CDT) HBs Antigen, S Negative Negative [facility] 03/22/2016 7:57 AM CDT 03/22/2016 7:57 AM CDT us Vianey Dilladr APRN, C.N.P. LAB MICROBIOLOGY - BL OOD ORDERABLES Final Result Performing Organization Address [facility] Co de Phone Number [facility] [address] from Last 3 Months or Most Recently Relevant to Health Maintenance Insurance MEDICARE [facility] Member Subscriber Plan / Payer (Ef fective 2016-Present) Name:JEVON GLEASON C Relation to Subscriber:Spouse Name:Jevon Gleason Date of :1954 Address: [address] [place] [id number] Payer ID:Not on file Group ID:[id number] Type:Indemnity Address: [facility] [address] [place] [address]
--- NOTE | 2025-02-25 19:36 | ED.GENADULT ---
HPI - General Adult General Chief complaint: Back Injury/Pain Stated complaint: Back Injury Time Seen by Provider: 02/25/25 19:31 History of Present Illness HPI narrative: scraping huynh yesterday and started having lower mid back pain that radiates to both hips. normally takes prednisone and antirejection drugs daily, states took additional 20 of prednisone today to help with pain. tylenol LD at noon. no BM or urinary incont. 75-year-old man presenting to emergency department with complaint of low back and bilateral outer/posterior hip pain. Can barely stand due to pain in his hips that radiates up into the low back. Could not get out of bed. Does have a history of intermittent low back pain and does have a history of bilateral hip pain. 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 Yesterday had been scraping huynh and moving some druze use. Did not feel it was particularly heavy as he was lifting an and by himself. Does not recall specific injury. This morning around 10:00 a.m. when he went to meet with his crew he noted that he was starting to have some low back and hip pain. This has only escalated. Went to the chiropractor around 2:00 p.m.. This is a chiropractor he has seen before. Did have treatment on inversion table in some manipulation of the low back/hips. He says that the chiropractor noted that his low back was a little swollen at that time. Did take some acetaminophen around noon. He has not noted any rash or fever. No chills. No rash. No sore throat. No diarrhea. No headache. No neck pain. No cough or cold symptoms. Just was not very hungry, did not feel like eating then but no nausea. Does have a history of hypothyroid and autoimmune hepatitis; notes stage IV.. Does take regular prednisone and CellCept and took an extra 20 mg of prednisone today. It is not clear to me that there is a history of neurogenic/radicular back pain. Presents now to the emergency department at 7:30 p.m. Related Data Home Medications ?Medication ?Instructions ?Recorded ?Confirmed Lactobacillus acidoph-L.bulgaricus 1 tab PO ONCE 06/25/24 06/25/24 1 million cell chewable tablet ascorbic acid (vitamin C) 1,000 mg 1 g PO Q6H 06/25/24 06/25/24 capsule carvedilol 25 mg tablet 25 mg PO BID 06/25/24 06/25/24 cholecalciferol (vitamin D3) 125 125 mcg PO QDAY 06/25/24 06/25/24 mcg (5,000 unit) tablet diclofenac sodium 1 % topical gel 4 g topical QID 06/25/24 06/25/24 digestive enzymes 1 cap PO QDAY 06/25/24 06/25/24 levothyroxine 137 mcg tablet 137 mcg PO QAM 06/25/24 06/25/24 losartan 25 mg tablet 25 mg PO DAILY 06/25/24 06/25/24 multivitamin 1 tab PO QAM 06/25/24 06/25/24 mycophenolate mofetil 250 mg 1,000 mg PO BID 06/25/24 06/25/24 capsule omeprazole 40 mg capsule,delayed 40 mg PO DAILY 06/25/24 06/25/24 release prednisone 5 mg tablet 5 mg PO DAILY 06/25/24 06/25/24 vitamin K2 100 mcg capsule 100 mcg PO QDAY 06/25/24 06/25/24 Allergies Allergy/AdvReac Type Severity Reaction Status Date / Time No Known Drug Allergies Allergy Verified 06/25/24 07:47 Review of Systems Status of ROS: Reports: 6 or more systems reviewed and unremarkable except as noted in History and below [facility] Medical History (Updated 02/26/25 @ 00:21 by Abner Freeman MD) Thrombocytopenia ?D69.6 - Thrombocytopenia, unspecified (ICD-10) Hypertension ?I10 - Essential (primary) hypertension (ICD-10) Autoimmune hepatitis ?K75.4 - Autoimmune hepatitis (ICD-10) Hypothyroidism ?E03.9 - Hypothyroidism, unspecified (ICD-10) Surgical History (Updated 02/25/25 @ 22:52 by Abner Freeman MD) History of partial thyroidectomy ?E89.0 - Postprocedural hypothyroidism (ICD-10) Social History What is your current living situation?: I presently have a place to live Problems where you live: no known problems In the past 12 months, utilities in danger of being shut off: no In past 12 months, lack of transportation kept you from medical appts, meetings, work, or getting things needed for daily living: no In the past 12 mos, have been you worried that your food would run out before you had money to buy more?: never true In the past 12 mos, the food you bought just didn't last and you didn't have money to buy more?: never true Smoking Status: Never smoker How often do you have a drink containing alcohol: never AUDIT-C Alcohol total score: 0 Non-prescribed substance use: denies use How often does anyone, including family, friends and others, physically hurt you: never How often does anyone, including family, friends and others, insult or talk down to you: never How often does anyone, including family, friends and others, threaten you with harm: never How often does anyone, including family, friends and others, scream or curse at you: never Exam Narrative: Exam Narrative: Very pleasant. Little hard of hearing. Breathing easily. Clearly in pain with any transition. Skin is rather warm, dry. Scattered small curran hemangiomas over his abdomen. Male pattern balding. No scleral icterus. Oropharynx is a little sticky without lesions or erythema. Lungs with some resolving squeaks to auscultation of the mid chest. Good air movement. Neck is supple without lymphadenopathy. Back is nontender until somewhat tender generally across the low back. He is so uncomfortable with this initial exam notes a little difficult to tell. Does not appear to be this sacroiliac joints. Flexion/movement of the hips in any direction causes a good deal discomfort. Negative straight leg raise though. Appreciate swelling erythema. Good muscle tone. Lower extremities without edema. Is well-perfused generally. Abdomen is overweight and soft and nontender. On repeat exam later of the low back there is a fullness in an area 10 cm across in the low mid lumbar spine. Subtle hypervascularity here as well. Const: Vital Signs, click to edit/add: Vital Signs - 24 hr 02/25/25 19:30 02/25/25 19:35 02/25/25 20:02 Temperature 101.7 F H Pulse Rate 72 Pulse Rate [Pulse Oximeter] 76 Respiratory Rate 16 Blood Pressure Blood Pressure [Ri ght Upper Arm] 172/85 H Pulse Oximetry 93 93 96 Oxygen Delivery Me thod Room Air 02/25/25 20:30 02/25/25 21:02 02/25/25 21:18 Temperature 101.7 F H 100.7 F H Pulse Rate 76 73 Pulse Rate [Pulse Oximeter] Respiratory Rate 16 Blood Pressure 145/72 H Blood Pressure [Ri ght Upper Arm] Pulse Oximetry 94 90 Oxygen Delivery Me thod 02/25/25 23:00 02/25/25 23:26 Temperature Pulse Rate 71 74 Pulse Rate [Pulse Oximeter] Respiratory Rate 16 Blood Pressure 160/78 H Blood Pressure [Ri ght Upper Arm] Pulse Oximetry 93 94 Oxygen Delivery Me thod Documenting provider has reviewed patient's vital signs: yes Course Vital Signs Vital signs: Initial Vital Signs Temperature 101.7 F H 02/25/25 19:30 Temperature Source Temporal Artery Scan 02/25/25 19:30 Pulse Rate 76 02/25/25 19:30 Pulse Rhythm Regular 02/25/25 19:30 Respiratory Rate 16 02/25/25 19:30 Blood Pressure 172/85 H 02/25/25 19:30 Blood Pressure Mean 114 H 02/25/25 19:30 Blood Pressure Position Sitting 02/25/25 19:30 Pulse Oximetry 93 02/25/25 19:30 Oxygen Delivery Method Room Air 02/25/25 19:30 Vital Signs Temperature 101.7 F H 02/25/25 19:30 Pulse Rate 76 02/25/25 19:30 Respiratory Rate 16 02/25/25 19:30 Blood Pressure 172/85 H 02/25/25 19:30 Pulse Oximetry 93 02/25/25 19:30 Oxygen Delivery Method Room Air 02/25/25 19:30 Temperature 100.7 F H 02/25/25 21:18 Pulse Rate 74 02/25/25 23:26 Respiratory Rate 16 02/25/25 23:26 Blood Pressure 160/78 H 02/25/25 23:26 Pulse Oximetry 94 02/25/25 23:26 Oxygen Delivery Method Room Air 02/25/25 19:30 Medications Administered Medications: Generic Name Dose Route Start Last Admin Trade Name Freq PRN Reason Stop Dose Admin Sodium Chloride 500 mls @ 1,000 mls/hr 02/25/25 22:41 02/25/25 22:50 0.9 % Sodium Chloride 500 Ml IV 02/25/25 23:10 1,000 mls/hr .Q30M ONE Administration Oxycodone/Acetaminophen 2 tab 02/25/25 22:41 02/25/25 22:48 Oxycodone/Apap 5-325 Tablet PO 02/25/25 22:42 2 tab ONCE ONE Administration Discontinued Medications Generic Name Dose Route Start Last Admin Trade Name Jeff PRN Reason Stop Dose Admin Hydromorphone HCl 1 mg 02/25/25 19:48 02/25/25 19:58 Hydromorphone 0.5 Mg/0.5 Ml Inj IM 02/25/25 19:49 1 mg ONCE ONE Administration Hydromorphone HCl 0.5 mg 02/25/25 20:00 02/25/25 20:05 Hydromorphone 0.5 Mg/0.5 Ml Inj IVP 02/25/25 20:01 0.5 mg ONCE ONE Administration Sodium Chloride 1,000 mls @ 1,000 mls/hr 02/25/25 20:00 02/25/25 21:02 0.9 % Sodium Chloride 1000 Ml IV 02/25/25 20:59 Infused .Q1H ONE Infusion Ketorolac Tromethamine 30 mg 02/25/25 19:48 02/25/25 19:57 Ketorolac 30 Mg/Ml Inj IM 02/25/25 19:49 30 mg ONCE ONE Administration Medical Decision Making MDM Narrative Medical decision making narrative: Initially proposed treating pain. Appears to be having severe back pain and possible spasming with attempted movement. Presumably this was related to overuse yesterday. I think singular dosing of ketorolac would be acceptable here along with Dilaudid. I am notified then that has a fever; this would be consistent with warmth palpated on exam. Has history of immunosuppression and so do decide to investigate further. Will draw blood cultures. Standard labs. Urinalysis considering his hip pain. This might represent a urinary tract infection of some sort. Does not appear to have symptoms consistent kidney stone. No headache and pain localized to the back and hips I think less likely to have encephalitis or even maybe meningitis. Might have of viral arthralgia of some sort in areas where he typically gets pain. This could just be radicular back pain as well. Vascular disruption? This would not though explain fever either. Could be paraspinal abscess as well. Discitis? IV fluids were initiated with normal saline. Dilaudid was given 0.5 mg IV with ketorolac having already been given at 30 mg IM. Sats dipped a little bit. Noted history of sleep apnea. Labs are reassuring. CRP a little bit elevated at 1.4. On reassessment is quite improved at rest but transitioning to provide urine sample is very difficult due to intense pain in same areas. Has to use a urinal. Urinalysis ultimately clear. Temperature has improved though still feels warm last measured temp at 100.7. Unclear etiology at this point. If no fever I could presume this was simply related to low back strain of some sort but with the significant pain he continues to demonstrate, which might represent simple arthralgia, proceed with CT imaging of the lumbar spine. Will also test for potential outpatient management, pending imaging, with 2 tabs of Percocet. 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 Will scan entire abdomen and pelvis. I did independently review IV contrasted CT imaging abdomen and pelvis and reconstituted lumbar spine. Do not appreciate discrete fluid collection like abscess. Gallbladder looks particularly large but without evidence of inflammation. Bibasilar possibly atelectasis. Indication: Severe lumbar and hip pain, fever Technique: Postcontrast CT through the lumbar spine with multiplanar reformats following 101 mL Isovue 370 IV contrast. Comparison: None Findings: Alignment: Slight rightward curvature. Mild L5-S1 retrolisthesis. No acute malalignment appreciated. Bones: No acute lumbar vertebral fracture. Lumbar levels: No acute abnormality appreciated. Multilevel degenerative changes are noted. Degenerative endplate changes are present with minimal erosive appearing endplate changes at L2-3, L4-5, and L5-S1, appearance most compatible with degenerative disease but suboptimally evaluated by this modality. No high-grade central stenosis is suspected. Soft tissues: No acute paraspinal abnormality is appreciated. Impression: [id number] multilevel degenerative changes of the spine. No high-grade central or foraminal stenosis is suspected. Mild irregularities along disc spaces and endplates favored to be degenerative in nature but would be better evaluated by contrast-enhanced MRI if there is strong clinical suspicion for discitis osteomyelitis. Please note that all CT scans at this facility use dose modulation, iterative reconstruction, and/or weight-based dosing when appropriate to reduce radiation dose to as low as reasonably achievable. Dictated by Johnnie Hernandez MD @ 02/25/2025 11:40:30 PM Indication: Low back pain Technique: CT through the abdomen and pelvis following 101 mL Isovue 370 IV contrast Comparison: None Findings: Lower chest: Bibasilar atelectasis and/or scarring. Hepatobiliary: Cirrhotic morphology. Dilated gallbladder without wall thickening or adjacent stranding. Spleen: Splenomegaly. Pancreas: No acute abnormality appreciated. Adrenal glands: Indeterminate density left adrenal gland nodule. Kidneys: The right kidney demonstrates no acute abnormality. The left kidney demonstrates a mottled calcified, soft tissue, and fatty irregular region. No hydronephrosis. Bowel: No obstruction. No focal perienteric or pericolonic stranding is appreciated. The appendix is visualized and appears unremarkable. Vascular: Portosystemic shunting. Atherosclerosis. Lymph nodes: No gross lymphadenopathy. Peritoneum: No free air. No free fluid. : No acute abnormality appreciated. Soft tissues: No acute abnormality appreciated. Bones: No acute fracture. No lytic or blastic lesion. Degenerative changes of the spine and pelvis. Impression: 1. No acute abnormality appreciated. 2. Cirrhosis with stigmata of portal hypertension. 3. Mottled irregular region of the left kidney with calcifications, soft tissue, and irregular fat density. Appearance is most suggestive of prior cryoablation or radiofrequency ablation. Correlation with history and prior imaging recommended. Please note that all CT scans at this facility use dose modulation, iterative reconstruction, and/or weight-based dosing when appropriate to reduce radiation dose to as low as reasonably achievable. Dictated by Johnnie Hernandez MD @ 02/25/2025 11:56:23 PM On reassessment 25 minutes after percocet, is relatively comfortable at rest but still with significant pain with any attempted movement. Probably have not seen full effect of this medication but I am impressed at his residual pain. I have already discussed this case with hospitalist and anticipating admission for further cares at minimum pain management. Possible IV antibiotics. Contrasted MRI of lumbar spine might be indicated looking for diskitis. Chest x-ray one-view portable independently reviewed by me does appear to show any infiltrate. Marked elevation of the left hemidiaphragm. INDICATION: Fever, bibasilar atelectasis TECHNIQUE: Chest radiograph 1 view COMPARISON: None FINDINGS: The sensitivity and specificity of the exam are moderately limited by the patient`s body habitus. Mediastinum: The mediastinum is normal in appearance. The heart silhouette is normal in size and morphology. Severe elevation of the left hemidiaphragm is noted. Lung: Both lungs are unremarkable in appearance. No sign of pleural effusion seen. No pneumothorax is identified. Bone and Soft tissue: Unremarkable for age. IMPRESSION: 1. Severe elevation of the left hemidiaphragm is noted. Dictated by Supa Royal MD @ 02/26/2025 12:31:37 AM Anticipating handoff at change of shift pending formal admission from overnight hospitalist. Medical Records Medical records reviewed: Yes I reviewed the patient's medical records Lab Data Lab results reviewed: Yes I reviewed the patient's lab results Labs: Lab Results 02/25/25 02/25/25 Range/Units 20:10 23:40 WBC 5.36 (4.50-11.00) K/uL RBC 4.36 (4.30-5.90) m/uL Hgb 13.5 (13.5-17.5) gm/dL Hct 40.8 (37.0-53.0) % MCV 94 (80-100) fL MCH 31 (26-34) pg MCHC 33 (32-36) gm/dL RDW Coeff of Janis 15.2 (11.5-15.5) % Plt Count 52 L (140-440) K/uL Neut % (Auto) 88.2 H (42.0-72.0) % Lymph % (Auto) 4.9 L (20-44) % Josephine % (Auto) 6.5 (0.0-11.0) % Eos % (Auto) 0.0 (0.0-7.0) % Baso % (Auto) 0.2 (0.0-3.0) % Neut # (Auto) 4.70 (1.7-7.0) K/uL Lymph # (Auto) 0.30 L (0.90-2.90) K/uL Josephine # (Auto) 0.30 (0.00-0.90) K/UL Eos # (Auto) 0.00 (0.00-0.50) K/uL Baso # (Auto) 0.01 (0.00-0.30) K/uL Abs Immat Gran (auto) 0.01 (0.00-0.30) K/uL Imm/Tot Granulo (auto) 0.2 % Sodium 132 L (135-149) mmol/L Potassium 4.1 (3.6-5.1) mmol/L Chloride 103 (96-114) mmol/L Carbon Dioxide 23 (20-32) mmol/L Anion Gap 6 L (7-15) mEq/L BUN 14 (7-30) mg/dL Creatinine 0.6 (0.5-1.5) mg/dL Estimated Creat Clear 67.98 Estimated GFR 101 ml/min Glucose 115 (60-115) mg/dL Calcium 8.8 (8.4-10.6) mg/dL Total Bilirubin 2.6 H (0.1-1.5) mg/dL Direct Bilirubin 0.6 H (0.0-0.5) mg/dL AST 65 H (12-35) U/L ALT 110 H (4-50) U/L Alkaline Phosphatase 109 (40-150) U/L C-Reactive Protein 1.4 H (0.5-1.0) mg/dL Total Protein 7.3 (6.0-8.3) g/dL Albumin 3.8 (3.3-5.0) g/dL Lipase 66 (23-300) U/L Urine Color Yellow (Yellow) Urine Appearance Clear (Clear) Urine pH 6.0 (5.0-8.5) Ur Specific Dike 1.020 (1.000-1.030) Urine Protein 1+ A (Negative) Urine Glucose (UA) Negative (Negative) Urine Ketones 2+ A (Negative) Urine Blood Negative (Negative) Urine Nitrite Negative (Negative) Urine Bilirubin Negative (Negative) Urine Urobilinogen 1.0 (0.2-1.0) Ur Leukocyte Esterase Negative (Negative) Urine RBC 0-2 (0-2) Urine WBC 0-2 (0-5) Ur Squamous Epith Cells Few (None-Few) Urine Bacteria None (None) SARS-CoV-2 (PCR) Negative SARS-CoV-2 (Negative) Influenza Type A (PCR) Negative PCR FLU A (Negative) Influenza Type B (PCR) Negative PCR FLU B (Negative) Lab Acknowledgement Test Added Discharge Plan Discharge Clinical Impression: Low back pain, Fever Patient Disposition: Admitted As Observation Condition: Improved
[2025-02-25 20:22] LABS: Hematocrit* 40.8 % (37.0-53.0); Hemoglobin* 13.5 gm/dL (13.5-17.5); Immature Granulocytes Abs Auto 0.01 K/uL (0.00-0.30); Immature Granulocytes Pct Auto 0.2 %; Mean Corpuscular HGB Conc 33 gm/dL (32-36); Mean Corpuscular Hemoglobin 31 pg (26-34); Mean Corpuscular Volume 94 fL (80-100); RDW Coefficient of Variation % 15.2 % (11.5-15.5); Red Blood Count* 4.36 m/uL (4.30-5.90); White Blood Count* 5.36 K/uL (4.50-11.00)
[2025-02-25 20:31] LABS: Lymphocytes Absolute Auto 0.30 K/uL (0.90-2.90); Slide Review Reflex No
[2025-02-25 20:34] LABS: Chloride* 103 mmol/L (96-114); Sodium* 132 mmol/L (135-149)
[2025-02-25 20:35] LABS: Potassium* 4.1 mmol/L (3.6-5.1)
[2025-02-25 20:38] LABS: Anion Gap 6 mEq/L (7-15); Blood Urea Nitrogen* 14 mg/dL (7-30); Calcium* 8.8 mg/dL (8.4-10.6); Carbon Dioxide* 23 mmol/L (20-32); Creatinine* 0.6 mg/dL (0.5-1.5); Est. Creatinine Clearance* 67.98; Estimated Glomerular Filt Rate 101 ml/min; Glucose* 115 mg/dL (60-115)
[2025-02-25 20:54] LABS: PCR FLU A Negative PCR FLU A (Negative); PCR FLU B Negative PCR FLU B (Negative); SARS PCR* Negative SARS-CoV-2 (Negative)
[2025-02-25 21:11] LABS: Appearance Urine Clear (Clear)
--- NOTE | 2025-02-25 22:41 | CRLHL7_ITS ---
For Patients: As a result of the Century Cures Act, medical imaging exams and procedure reports are released immediately into your electronic medical record. You may view this report before your referring provider. If you have questions, please contact your health care provider. Indication: Severe lumbar and hip pain, fever Technique: Postcontrast CT through the lumbar spine with multiplanar reformats following 101 mL Isovue 370 IV contrast. Comparison: None Findings: Alignment: Slight rightward curvature. Mild L5-S1 retrolisthesis. No acute malalignment appreciated. Bones: No acute lumbar vertebral fracture. Lumbar levels: No acute abnormality appreciated. Multilevel degenerative changes are noted. Degenerative endplate changes are present with minimal erosive appearing endplate changes at L2-3, L4-5, and L5-S1, appearance most compatible with degenerative disease but suboptimally evaluated by this modality. No high-grade central stenosis is suspected. Soft tissues: No acute paraspinal abnormality is appreciated. Impression: [id number] multilevel degenerative changes of the spine. No high-grade central or foraminal stenosis is suspected. Mild irregularities along disc spaces and endplates favored to be degenerative in nature but would be better evaluated by contrast-enhanced MRI if there is strong clinical suspicion for discitis osteomyelitis. Please note that all CT scans at this facility use dose modulation, iterative reconstruction, and/or weight-based dosing when appropriate to reduce radiation dose to as low as reasonably achievable. Dictated by Johnnie Hernandez MD @ 02/25/2025 11:40:30 PM (Electronically Signed)
[2025-02-25] MEDS: OxyCODONE/APAP 5-325 TABLET 2 TAB PO (22:48)
[2025-02-25] MEDS: 0.9 % SODIUM CHLORIDE 500 ML 500 ML 1000 ML IV (22:50)
--- NOTE | 2025-02-25 23:14 | CRLHL7_ITS ---
For Patients: As a result of the Century Cures Act, medical imaging exams and procedure reports are released immediately into your electronic medical record. You may view this report before your referring provider. If you have questions, please contact your health care provider. Indication: Low back pain Technique: CT through the abdomen and pelvis following 101 mL Isovue 370 IV contrast Comparison: None Findings: Lower chest: Bibasilar atelectasis and/or scarring. Hepatobiliary: Cirrhotic morphology. Dilated gallbladder without wall thickening or adjacent stranding. Spleen: Splenomegaly. Pancreas: No acute abnormality appreciated. Adrenal glands: Indeterminate density left adrenal gland nodule. Kidneys: The right kidney demonstrates no acute abnormality. The left kidney demonstrates a mottled calcified, soft tissue, and fatty irregular region. No hydronephrosis. Bowel: No obstruction. No focal perienteric or pericolonic stranding is appreciated. The appendix is visualized and appears unremarkable. Vascular: Portosystemic shunting. Atherosclerosis. Lymph nodes: No gross lymphadenopathy. Peritoneum: No free air. No free fluid. : No acute abnormality appreciated. Soft tissues: No acute abnormality appreciated. Bones: No acute fracture. No lytic or blastic lesion. Degenerative changes of the spine and pelvis. Impression: 1. No acute abnormality appreciated. 2. Cirrhosis with stigmata of portal hypertension. 3. Mottled irregular region of the left kidney with calcifications, soft tissue, and irregular fat density. Appearance is most suggestive of prior cryoablation or radiofrequency ablation. Correlation with history and prior imaging recommended. Please note that all CT scans at this facility use dose modulation, iterative reconstruction, and/or weight-based dosing when appropriate to reduce radiation dose to as low as reasonably achievable. Dictated by Johnnie Hernandez MD @ 02/25/2025 11:56:23 PM (Electronically Signed)
[2025-02-25 23:53] LABS: Albumin* 3.8 g/dL (3.3-5.0)
[2025-02-25 23:56] LABS: Alanine Aminotransferase* 110 U/L (4-50); Alkaline Phosphatase* 109 U/L (40-150); Aspartate Amino Transferase* 65 U/L (12-35); Bilirubin Direct* 0.6 mg/dL (0.0-0.5); Bilirubin Total* 2.6 mg/dL (0.1-1.5); Total Protein* 7.3 g/dL (6.0-8.3)
[2025-02-26] VITALS (11 sets, daily range): BP systolic 90–142; BP diastolic 57–97; PULSE 61–77; RESP 16–20; TEMP 36.5–38.7; O2SAT 85–95; BMI 28.9
--- NOTE | 2025-02-26 00:01 | CRLHL7_ITS ---
For Patients: As a result of the Cures Act, medical imaging exams and procedure reports are released immediately into your electronic medical record. You may view this report before your referring provider. If you have questions, please contact your health care provider. INDICATION: Fever, bibasilar atelectasis TECHNIQUE: Chest radiograph 1 view COMPARISON: None FINDINGS: The sensitivity and specificity of the exam are moderately limited by the patient`s body habitus. Mediastinum: The mediastinum is normal in appearance. The heart silhouette is normal in size and morphology. Severe elevation of the left hemidiaphragm is noted. Lung: Both lungs are unremarkable in appearance. No sign of pleural effusion seen. No pneumothorax is identified. Bone and Soft tissue: Unremarkable for age. IMPRESSION: 1. Severe elevation of the left hemidiaphragm is noted. Dictated by Supa Royal MD @ 02/26/2025 12:31:37 AM Dictated by: Supa Royal MD @ 02/26/2025 00:32:57 (Electronically Signed)
[2025-02-26] MEDS: PIPERACILLIN/TAZOBACTAM 3.375 GM in 0.9 % SODIUM CHLORIDE Mini-bag 100 ML IVPB ×3 (01:01→12:53)
[2025-02-26] MEDS: VANCOMYCIN 2 GM/400 ML 2 GM/400 ML PIGGYBACK IVPB (01:39)
--- NOTE | 2025-02-26 02:18 | W.PM.TELEH&P ---
Telehealth- H&P: HPI History of Present Illness Date Seen: 02/26/25 Chief complaint: Back Injury Narrative: Jevon Bhagat is seen as an Interactive Telehealth visit. Jevon Bhagat is a 75 year old male with past medical history significant for hypothyroidism, autoimmune hepatitis, thrombocytopenia, who presents to the emergency department with lower back pain with radiation to bilateral hips that began the day of admission. Patient states he woke up around 5:30 AM which is his normal awakening time. He subsequently had back pain around 10 AM with associated hip pain that made it difficult for him to walk. 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 He denies any chest pain, palpitations, shortness of breath. He denies any nausea or vomiting. He does not use any walkers or canes to walk. He denies diarrhea or constipation. No sick contacts are noted. In the emergency department, he was noted to have WBC count of 5.36, hemoglobin 13.5, hematocrit 40.8, platelet count 52. Left shift was noted. Sodium of 132, potassium of 4.1, BUN of 14, creatinine 0.6. Direct bili 0.6 total bili 2.6 AST of 65 ALT of 110. Lumbar spine CT with mild to moderate multilevel degenerative changes of the spine. No high-grade central or foraminal stenosis noted. CT abdomen pelvis with cirrhosis and stigmata of portal hypertension otherwise no acute abnormality noted no acute fracture in the bones or lytic or blastic lesions were noted. In the emergency department patient was also noted to have a fever of 101.7. Given fever as well as back pain and hip pain patient was subsequently admitted for further management. Given autoimmune hepatitis as well as immunocompromise state patient was given IV Zosyn as well as IV vancomycin. Review of Systems Status of ROS: Reports: 10 or more systems reviewed and unremarkable except as noted in History and below [facility] Medical History Thrombocytopenia ?D69.6 - Thrombocytopenia, unspecified (ICD-10) Hypertension ?I10 - Essential (primary) hypertension (ICD-10) Autoimmune hepatitis ?K75.4 - Autoimmune hepatitis (ICD-10) Hypothyroidism ?E03.9 - Hypothyroidism, unspecified (ICD-10) Surgical History History of partial thyroidectomy ?E89.0 - Postprocedural hypothyroidism (ICD-10) Social History What is your current living situation?: I presently have a place to live Problems where you live: no known problems In the past 12 months, utilities in danger of being shut off: no In past 12 months, lack of transportation kept you from medical appts, meetings, work, or getting things needed for daily living: no In the past 12 mos, have been you worried that your food would run out before you had money to buy more?: never true In the past 12 mos, the food you bought just didn't last and you didn't have money to buy more?: never true Smoking Status: Never smoker How often do you have a drink containing alcohol: never AUDIT-C Alcohol total score: 0 Non-prescribed substance use: denies use How often does anyone, including family, friends and others, physically hurt you: never How often does anyone, including family, friends and others, insult or talk down to you: never How often does anyone, including family, friends and others, threaten you with harm: never How often does anyone, including family, friends and others, scream or curse at you: never Meds Home Medications and Allergies Home Medications ?Medication ?Instructions ?Recorded ?Confirmed ?Type Lactobacillus acidoph-L.bulgaricus 1 tab PO ONCE 06/25/24 06/25/24 History 1 million cell chewable tablet ascorbic acid (vitamin C) 1,000 mg 1 g PO Q6H 06/25/24 06/25/24 History capsule carvedilol 25 mg tablet 25 mg PO BID 06/25/24 06/25/24 History cholecalciferol (vitamin D3) 125 125 mcg PO QDAY 06/25/24 06/25/24 History mcg (5,000 unit) tablet diclofenac sodium 1 % topical gel 4 g topical QID 06/25/24 06/25/24 History digestive enzymes 1 cap PO QDAY 06/25/24 06/25/24 History levothyroxine 137 mcg tablet 137 mcg PO QAM 06/25/24 06/25/24 History losartan 25 mg tablet 25 mg PO DAILY 06/25/24 06/25/24 History multivitamin 1 tab PO QAM 06/25/24 06/25/24 History mycophenolate mofetil 250 mg 1,000 mg PO BID 06/25/24 06/25/24 History capsule omeprazole 40 mg capsule,delayed 40 mg PO DAILY 06/25/24 06/25/24 History release prednisone 5 mg tablet 5 mg PO DAILY 06/25/24 06/25/24 History vitamin K2 100 mcg capsule 100 mcg PO QDAY 06/25/24 06/25/24 History Allergies Allergy/AdvReac Type Severity Reaction Status Date / Time No Known Drug Allergies Allergy Verified 06/25/24 07:47 Exam Narrative Exam Narrative: Physical Exam GENERAL: ?vital signs reviewed, well developed and nourished, in no distress HEENT: pupils are equal round and reactive to light, extraocular movements are grossly within normal limits and oral mucosa is moist. NECK: Supple without lymphadenopathy or thyromegaly according to nursing staff examination observation HEART: Regular rate and rhythm without any rubs, murmurs, or gallops. LUNGS: Clear to auscultation bilaterally with good air movement throughout ABDOMEN: Observation from nurse assisted exam, abdomen appears soft, nontender, and nondistended with Positive bowel sounds noted. EXTREMITIES: Strength and sensation is observed to be grossly within normal limits in the upper and lower extremities.? No focal strength deficit is observed. SKIN:? Observed warm and dry with color normal Back: No point tenderness is noted Const Vital Signs, click to edit/add: Vital Signs - 24 hr 02/25/25 19:30 02/25/25 19:35 02/25/25 20:02 Temperature 101.7 F H Pulse Rate 72 Pulse Rate [Pulse Oximeter] 76 Respiratory Rate 16 Blood Pressure Blood Pressure [Right Upper Arm] 172/85 H Pulse Oximetry 93 93 96 Oxygen Delivery Method Room Air 02/25/25 20:30 02/25/25 21:02 02/25/25 21:18 Temperature 101.7 F H 100.7 F H Pulse Rate 76 73 Pulse Rate [Pulse Oximeter] Respiratory Rate 16 Blood Pressure 145/72 H Blood Pressure [Right Upper Arm] Pulse Oximetry 94 90 Oxygen Delivery Method 02/25/25 23:00 02/25/25 23:26 02/25/25 23:27 Temperature Pulse Rate 71 74 73 Pulse Rate [Pulse Oximeter] Respiratory Rate 16 Blood Pressure 160/78 H Blood Pressure [Right Upper Arm] Pulse Oximetry 93 94 94 Oxygen Delivery Method 02/25/25 23:30 02/25/25 23:43 02/26/25 00:02 Temperature Pulse Rate 73 71 70 Pulse Rate [Pulse Oximeter] Respiratory Rate Blood Pressure 131/61 133/63 Blood Pressure [Right Upper Arm] Pulse Oximetry 93 91 90 Oxygen Delivery Method 02/26/25 00:22 02/26/25 00:42 Temperature Pulse Rate 68 67 Pulse Rate [Pulse Oximeter] Respiratory Rate 16 Blood Pressure 131/70 125/57 L Blood Pressure [Right Upper Arm] Pulse Oximetry 92 91 Oxygen Delivery Method Hospitalist - H&P: Result Labs Labs: Short CBC 02/25/25 Range/Units 20:10 WBC 5.36 (4.50-11.00) K/uL Hgb 13.5 (13.5-17.5) gm/dL Hct 40.8 (37.0-53.0) % Plt Count 52 L (140-440) K/uL BMP 02/25/25 20:10 Sodium 132 L Potassium 4.1 Chloride 103 Carbon Dioxide 23 BUN 14 Creatinine 0.6 Glucose 115 Calcium 8.8 Liver Function 02/25/25 Range/Units 20:10 Total Bilirubin 2.6 H (0.1-1.5) mg/dL Direct Bilirubin 0.6 H (0.0-0.5) mg/dL AST 65 H (12-35) U/L ALT 110 H (4-50) U/L Alkaline Phosphatase 109 (40-150) U/L Albumin 3.8 (3.3-5.0) g/dL Urine 02/25/25 Range/Units 20:10 Urine Color Yellow (Yellow) Urine Appearance Clear (Clear) Urine pH 6.0 (5.0-8.5) Ur Specific [place] 1.020 (1.000-1.030) Urine Protein 1+ A (Negative) Urine Glucose (UA) Negative (Negative) Imaging CT- Other: Radiologist's impression: 1. No acute abnormality appreciated. 2. Cirrhosis with stigmata of portal hypertension. 3. Mottled irregular region of the left kidney with calcifications, soft tissue, and irregular fat density. Appearance is most suggestive of prior cryoablation or radiofrequency ablation. Correlation with history and prior imaging recommended. CT lumbar spine: [id number] multilevel degenerative changes of the spine. No high-grade central or foraminal stenosis is suspected. Mild irregularities along disc spaces and endplates favored to be degenerative in nature but would be better evaluated by contrast-enhanced MRI if there is strong clinical suspicion for discitis osteomyelitis. Assessment and Plan Assessment and plan (1) Low back pain: Status: Acute (2) Fever: Status: Acute (3) Thrombocytopenia: Status: Acute (4) Hypertension: Status: Acute (5) Autoimmune hepatitis: Status: Acute (6) Hypothyroidism: Status: Acute Plan 75 year old male with past medical history significant for hypothyroidism, autoimmune hepatitis, thrombocytopenia, who presents to the emergency department with lower back pain with radiation to bilateral hips that began the day of admission with noted fever of 101.7 in ER. Possible sepsis, unclear source Lower back and bilateral hip pain Follow-up blood cultures x 2 follow-up urine culture Check MRI lumbar spine and hip Continue with vancomycin and IV Zosyn Autoimmune hepatitis Resume home CellCept and prednisone Thrombocytopenia Monitor Hypothyroidism Resume home levothyroxine Hypertension Resume home medications DVT prophylaxis: Lovenox subcu CODE STATUS full code Telehealth: Statement Statement Telehealth Visit: Today's History and Physical is provided via interactive telehealth by Bridgette Lindsay MD.? Patient is located at [facility].? Provider is located at [facility].? Nursing staff assisted with the patient's exam. The visit being done today meets criteria for a telehealth visit and the patient or patient?s parent/guardian is aware the visit is a telehealth visit. Camera Start Time: 01:52 Camera End Time: 02:06
--- NOTE | 2025-02-26 02:36 | CRLHL7_ITS ---
For Patients: As a result of the Century Cures Act, medical imaging exams and procedure reports are released immediately into your electronic medical record. You may view this report before your referring provider. If you have questions, please contact your health care provider. INDICATION: Back pain, fever. TECHNIQUE: Multisequence multiplanar MRI of the lumbar spine without the use of intravenous contrast. COMPARISON: Correlated with CT lumbar spine dated 02/25/2025. FINDINGS: Normal vertebral alignment and stature. Mild edema and enhancement within the upper L5 vertebral body with associated endplate erosion. The conus medullaris terminates normally at the L1 level. There is multilevel disc desiccation and height loss. An exophytic 3.6 cm left interpolar renal lesion (series 6, image 17) is not adequately characterized. T12-L1: No significant spinal canal or neural foraminal stenosis. L1-L2, L2-L3, and L3-L4: Symmetric disc bulging. No significant spinal canal or neural foraminal stenosis. L4-L5: Symmetric disc bulge. Moderate facet joint arthrosis. No significant spinal canal stenosis. Mild-moderate right and no significant left neural foraminal narrowing. L5-S1: Symmetric disc bulge. No significant spinal canal or neural foraminal stenosis. IMPRESSION: 1. Mild edema and enhancement within the upper L5 vertebral body with associated endplate erosion, potentially degenerative in etiology, but concerning for osteomyelitis/discitis in the appropriate clinical context. 2. No evidence of epidural or paraspinal abscess. 3. Exophytic 3.6 cm left interpolar renal lesion also seen on recent prior CT abdomen/pelvis. 4. At L4-L5, mild-moderate right neural foraminal narrowing. Dictated by Aroldo Denis MD @ 02/26/2025 12:36:02 PM (Electronically Signed)
[2025-02-26] MEDS: ACETAMINOPHEN 325 MG TABLET 650 MG PO ×2 (03:37→10:13)
[2025-02-26] MEDS: LEVOTHYROXINE 112 MCG TABLET PO (05:29)
[2025-02-26] MEDS: LEVOTHYROXINE 25 MCG TABLET PO (05:29)
--- NOTE | 2025-02-26 06:17 | PC.NURSE ---
End of shift report: Pt was admitted to the floor at 0113. AxOx4. VSS. Afebrile. On RA. Rates pain from a 2 when resting and a 10/10 with movement. The pain is located on his lower back radiating to his bilat hips, prn pain meds offered and given with relief. Cont of bladder, utilizing the urinal. Pt is resting in bed call light within reach.
[2025-02-26] MEDS: SODIUM CHLORIDE 0.9 % (FLUSH) 10 ML SYRINGE 5 ML IVF (08:37)
[2025-02-26 08:41] LABS: Hematocrit* 40.0 % (37.0-53.0); Hemoglobin* 13.0 gm/dL (13.5-17.5); Immature Granulocytes Abs Auto 0.04 K/uL (0.00-0.30); Immature Granulocytes Pct Auto 0.4 %; Mean Corpuscular HGB Conc 33 gm/dL (32-36); Mean Corpuscular Hemoglobin 31 pg (26-34); Mean Corpuscular Volume 95 fL (80-100); RDW Coefficient of Variation % 15.6 % (11.5-15.5); Red Blood Count* 4.20 m/uL (4.30-5.90); White Blood Count* 9.52 K/uL (4.50-11.00)
[2025-02-26 08:49] LABS: Lymphocytes Absolute Auto 0.50 K/uL (0.90-2.90); Slide Review Reflex No
[2025-02-26 08:54] LABS: Lactate* 1.8 mmol/L (0.5-1.9)
[2025-02-26 09:12] LABS: Albumin* 3.4 g/dL (3.3-5.0); Chloride* 102 mmol/L (96-114)
[2025-02-26 09:13] LABS: Potassium* 4.0 mmol/L (3.6-5.1); Sodium* 130 mmol/L (135-149)
[2025-02-26 09:15] LABS: Alanine Aminotransferase* 88 U/L (4-50); Anion Gap 7 mEq/L (7-15); Aspartate Amino Transferase* 42 U/L (12-35); Blood Urea Nitrogen* 16 mg/dL (7-30); Carbon Dioxide* 21 mmol/L (20-32); Creatinine* 0.8 mg/dL (0.5-1.5); Est. Creatinine Clearance* 67.98; Estimated Glomerular Filt Rate 92 ml/min
[2025-02-26 09:16] LABS: Alkaline Phosphatase* 71 U/L (40-150); Bilirubin Total* 3.7 mg/dL (0.1-1.5); Calcium* 8.0 mg/dL (8.4-10.6); Glucose* 114 mg/dL (60-115); Total Protein* 6.8 g/dL (6.0-8.3)
--- NOTE | 2025-02-26 13:53 | PM.DST ---
Transfer Discharge Sum: Prov Provider Date Seen: 02/26/25 Date of admission: 02/26/25 08:58 Primary care physician: Sammy Jha MD Attending physician on admission: Bridgetet Lindsay Consults: 02/26/25 02:31 Consult to Physical Therapy [CONS] Routine Comment: Reason(s) for PT Consult:: Evaluate and Treat Any Restrictions?:: No Restrictions Attending physician on discharge: Marika Obrien Anticipated date of transfer: 02/26/25 Receiving physician/facility: [facility], Dr. Garcia DS: Diagnosis Discharge Diagnosis (1) Sepsis: Status: Acute Problem details: Fever 101.7, hypotensive SBP 80-90s, source bacteremia, discitis. No lactate on admission. Lactate this am 1.8. CRP 1.4, ESR 7 BC x2 growing Gram-positive cocci in clusters UC pending Continue vancomycin and Zosyn (2) Bacteremia: Status: Acute Problem details: BC x2 growing Gram-positive cocci in clusters (3) Discitis: Status: Acute Problem details: Admitted with low back pain and fever. Immunosuppressed. MRI shows Mild edema and enhancement within the upper L5 vertebral body with associated endplate erosion, potentially degenerative in etiology, but concerning for osteomyelitis/discitis (4) Low back pain: Status: Acute Problem details: Low back hip pain onset 02/25. No trauma, no falls. Had been working scraping huynh (5) Fever: Status: Acute Problem details: 101.7? in the ED BC as above, UC pending, Lyme titer/tick-borne panel and West Nile virus pending Tylenol, IV Toradol as needed (6) Thrombocytopenia: Status: Acute Problem details: Chronic, platelets 53 (7) Hypertension: Status: Acute Problem details: Hold losartan, carvedilol in setting of sepsis (8) Autoimmune hepatitis: Status: Acute Problem details: Continue CellCept, prednisone Total bilirubin 3.7, direct bilirubin 0.6, AST 42, ALT 88, alk-phos 71 Followed by [facility] (9) Hypothyroidism: Status: Acute Problem details: Continue levothyroxine Transfer Discharge Sum: Med Medications Active and Home Medications: Home Medications Lactobacillus acidoph-L.bulgaricus 1 million cell chewable tablet 1 tab PO DAILY 06/25/24 [History Confirmed 02/26/25] ascorbic acid (vitamin C) 1,000 mg capsule 1 g PO BID 06/25/24 [History Confirmed 02/26/25] carvedilol 25 mg tablet 25 mg PO BID 06/25/24 [History Confirmed 02/26/25] cholecalciferol (vitamin D3) 125 mcg (5,000 unit) tablet 125 mcg PO QDAY 06/25/24 [History Confirmed 02/26/25] digestive enzymes 1 cap PO QDAY 06/25/24 [History Confirmed 02/26/25] levothyroxine 137 mcg tablet 137 mcg PO QAM 06/25/24 [History Confirmed 02/26/25] losartan 25 mg tablet 25 mg PO HS 06/25/24 [History Confirmed 02/26/25] multivitamin 1 tab PO QAM 06/25/24 [History Confirmed 02/26/25] mycophenolate mofetil 250 mg capsule 750 mg PO BID 06/25/24 [History Confirmed 02/26/25] omeprazole 40 mg capsule,delayed release 40 mg PO DAILY 06/25/24 [History Confirmed 02/26/25] prednisone 5 mg tablet 5 mg PO DAILY 06/25/24 [History Confirmed 02/26/25] vitamin K2 100 mcg capsule 100 mcg PO QDAY 06/25/24 [History Confirmed 02/26/25] Active Medications Acetaminophen (Acetaminophen 325 Mg Tablet) 650 mg PO Q6H PRN Last Admin: 02/26/25 10:13 Dose: 650 mg Carvedilol (Carvedilol 25 Mg Tablet) 25 mg PO BID [facility] Last Admin: 02/26/25 08:36 Dose: 25 mg Enoxaparin Sodium (Enoxaparin 40 Mg/0.4 Ml Inj) 40 mg SUBCUT HS [facility] Hydromorphone HCl (Hydromorphone 0.5 Mg/0.5 Ml Inj) 0.5 mg IVP Q2H PRN PRN Reason: Pain Piperacillin Sod/Tazobactam (Sod 3.375 gm/ Sodium Chloride) 100 mls @ 200 mls/hr IVPB Q6H [facility] Last Infusion: 02/26/25 13:40 Dose: Infused Vancomycin/PEG/NADA/Lysine/Water (Vancomycin 1.5 Gm/300 Ml) 1.5 gm in 300 mls @ 200 mls/hr IVPB Q12H [facility] Sodium Chloride (0.9 % Sodium Chloride 1000 Ml) 1,000 mls @ 125 mls/hr IV .Q8H [facility] IV Miscellaneous Supplies (Pharmacist Consult) 1 each MC Q24H [facility]; Protocol Levothyroxine Sodium (Levothyroxine 25 Mcg Tablet) 25 mcg PO 0730 [facility] Last Admin: 02/26/25 05:29 Dose: 25 mcg Levothyroxine Sodium (Levothyroxine 112 Mcg Tablet) 112 mcg PO 0730 [facility] Last Admin: 02/26/25 05:29 Dose: 112 mcg Mycophenolate Mofetil (Mycophenolate Mofetil 250 Mg Capsule) 750 mg PO BID [facility] Last Admin: 02/26/25 08:37 Dose: 750 mg Ondansetron HCl (Ondansetron Odt 4 Mg Tab) 4 mg PO Q6H PRN PRN Reason: Nausea And Vomiting Ondansetron HCl (Ondansetron 2 Mg/Ml Inj) 4 mg IVP Q4H PRN PRN Reason: Nausea Oxycodone HCl (Oxycodone 5 Mg Tablet) 5 mg PO Q4H PRN Perflutren Lipid Microsphere (Perflutren Lipid Microspheres 2 Ml Vial) 2 ml IVP ONCE PRN Prednisone (Prednisone 5 Mg Tablet) 5 mg PO DAILY [facility] Last Admin: 02/26/25 08:36 Dose: 5 mg Sodium Chloride (Sodium Chloride 0.9 % (Flush) 10 Ml Syringe) 5 ml IVF .FLUSH PRN Sodium Chloride (Sodium Chloride 0.9 % (Flush) 10 Ml Syringe) 5 ml IVF BID [facility] Last Admin: 02/26/25 08:37 Dose: 5 ml Sodium Chloride (0.9 % Sodium Chloride 250 Ml) 250 ml IV Q24H [facility] Last Admin: 02/26/25 05:34 Dose: 250 ml Transfer Discharge Sum: Hosp Hospital Course Hospital course: Jevon Bhagat is a 75 year old male PMH significant for autoimmune hepatitis, hypertension, hypothyroidism is admitted to the medical floor with fever and low back pain. Within 12 hours, both blood cultures growing Gram-positive cocci in clusters. UC pending. MRI shows concern for L5 discitis. Patient is on Zosyn and vancomycin. Discussed with Dr. Garcia, [facility], accepts for transfer. Time Spent with Patient Time attestation: Total time spent providing and/or coordinating transfer services: Total time spent: Greater than 30 minutes Exam Narrative: Exam Narrative: PHYSICAL EXAM General: Pleasant, appears tired otherwise NAD Cardiovascular: RRR Pulmonary: No dyspnea on 1 L Neurological: Alert, answering questions appropriately Skin: Warm, dry. Const: Vital Signs, click to edit/add: Vital Signs - 24 hr 02/25/25 19:30 02/25/25 19:35 02/25/25 20:02 Temperature 101.7 F H Pulse Rate 72 Pulse Rate [Pulse Oximeter] 76 Pulse Rate [Right Pulse Oximeter] Respiratory Rate 16 Blood Pressure Blood Pressure [Le ft Arm] Blood Pressure [Ri ght Arm] Blood Pressure [Ri ght Upper Arm] 172/85 H Pulse Oximetry 93 93 96 Oxygen Delivery Me thod Room Air Oxygen Flow Rate 02/25/25 20:30 02/25/25 21:02 02/25/25 21:18 Temperature 101.7 F H 100.7 F H Pulse Rate 76 73 Pulse Rate [Pulse Oximeter] Pulse Rate [Right Pulse Oximeter] Respiratory Rate 16 Blood Pressure 145/72 H Blood Pressure [Le ft Arm] Blood Pressure [Ri ght Arm] Blood Pressure [Ri ght Upper Arm] Pulse Oximetry 94 90 Oxygen Delivery Me thod Oxygen Flow Rate 02/25/25 23:00 02/25/25 23:26 02/25/25 23:27 Temperature Pulse Rate 71 74 73 Pulse Rate [Pulse Oximeter] Pulse Rate [Right Pulse Oximeter] Respiratory Rate 16 Blood Pressure 160/78 H Blood Pressure [Le ft Arm] Blood Pressure [Ri ght Arm] Blood Pressure [Ri ght Upper Arm] Pulse Oximetry 93 94 94 Oxygen Delivery Me thod Oxygen Flow Rate 02/25/25 23:30 02/25/25 23:43 02/26/25 00:02 Temperature Pulse Rate 73 71 70 Pulse Rate [Pulse Oximeter] Pulse Rate [Right Pulse Oximeter] Respiratory Rate Blood Pressure 131/61 133/63 Blood Pressure [Le ft Arm] Blood Pressure [Ri ght Arm] Blood Pressure [Ri ght Upper Arm] Pulse Oximetry 93 91 90 Oxygen Delivery Me thod Oxygen Flow Rate 02/26/25 00:22 02/26/25 00:42 02/26/25 01:13 Temperature 98.6 F Pulse Rate 68 67 Pulse Rate [Pulse Oximeter] Pulse Rate [Right Pulse Oximeter] 69 Respiratory Rate 16 16 Blood Pressure 131/70 125/57 L Blood Pressure [Le ft Arm] 142/66 H Blood Pressure [Ri ght Arm] Blood Pressure [Ri ght Upper Arm] Pulse Oximetry 92 91 95 Oxygen Delivery Me thod Room Air Oxygen Flow Rate 02/26/25 01:13 02/26/25 03:59 02/26/25 08:43 Temperature 98.4 F 101.7 F H Pulse Rate Pulse Rate [Pulse Oximeter] Pulse Rate [Right Pulse Oximeter] 67 75 Respiratory Rate 16 16 20 Blood Pressure Blood Pressure [Le ft Arm] 121/62 Blood Pressure [Ri ght Arm] 90/57 L Blood Pressure [Ri ght Upper Arm] Pulse Oximetry 95 95 85 L Oxygen Delivery Me thod Room Air Room Air Room Air Oxygen Flow Rate 02/26/25 08:43 02/26/25 08:53 02/26/25 09:11 Temperature Pulse Rate Pulse Rate [Pulse Oximeter] Pulse Rate [Right Pulse Oximeter] 77 77 Respiratory Rate 20 Blood Pressure Blood Pressure [Le ft Arm] 123/97 H Blood Pressure [Ri ght Arm] Blood Pressure [Ri ght Upper Arm] Pulse Oximetry 93 Oxygen Delivery Me thod Nasal Cannula Oxygen Flow Rate 1 02/26/25 10:13 02/26/25 12:10 02/26/25 12:46 Temperature 101.7 F H 97.7 F 97.7 F Pulse Rate Pulse Rate [Pulse Oximeter] Pulse Rate [Right Pulse Oximeter] 61 Respiratory Rate 18 Blood Pressure Blood Pressure [Le ft Arm] Blood Pressure [Ri ght Arm] 109/60 Blood Pressure [Ri ght Upper Arm] Pulse Oximetry 94 Oxygen Delivery Me thod Nasal Cannula Oxygen Flow Rate 1 Transfer Discharge Sum: Data Imaging Lumbar MRI: Attestation: I have reviewed the pertinent imaging results. Radiologist's impression: Normal vertebral alignment and stature. Mild edema and enhancement within the upper L5 vertebral body with associated endplate erosion. The conus medullaris terminates normally at the L1 level. There is multilevel disc desiccation and height loss. An exophytic 3.6 cm left interpolar renal lesion (series 6, image 17) is not adequately characterized. T12-L1: No significant spinal canal or neural foraminal stenosis. L1-L2, L2-L3, and L3-L4: Symmetric disc bulging. No significant spinal canal or neural foraminal stenosis. L4-L5: Symmetric disc bulge. Moderate facet joint arthrosis. No significant spinal canal stenosis. Mild-moderate right and no significant left neural foraminal narrowing. L5-S1: Symmetric disc bulge. No significant spinal canal or neural foraminal stenosis. IMPRESSION: 1. Mild edema and enhancement within the upper L5 vertebral body with associated endplate erosion, potentially degenerative in etiology, but concerning for osteomyelitis/discitis in the appropriate clinical context. 2. No evidence of epidural or paraspinal abscess. 3. Exophytic 3.6 cm left interpolar renal lesion also seen on recent prior CT abdomen/pelvis. 4. At L4-L5, mild-moderate right neural foraminal narrowing. Chest x-ray: Attestation: I have reviewed the pertinent imaging results. Radiologist's impression: FINDINGS: The sensitivity and specificity of the exam are moderately limited by the patient`s body habitus. Mediastinum: The mediastinum is normal in appearance. The heart silhouette is normal in size and morphology. Severe elevation of the left hemidiaphragm is noted. Lung: Both lungs are unremarkable in appearance. No sign of pleural effusion seen. No pneumothorax is identified. Bone and Soft tissue: Unremarkable for age. IMPRESSION: 1. Severe elevation of the left hemidiaphragm is noted. CT scan - abdomen: Attestation: I have reviewed the pertinent imaging results. Radiologist's impression: Lower chest: Bibasilar atelectasis and/or scarring. Hepatobiliary: Cirrhotic morphology. Dilated gallbladder without wall thickening or adjacent stranding. Spleen: Splenomegaly. Pancreas: No acute abnormality appreciated. Adrenal glands: Indeterminate density left adrenal gland nodule. Kidneys: The right kidney demonstrates no acute abnormality. The left kidney demonstrates a mottled calcified, soft tissue, and fatty irregular region. No hydronephrosis. Bowel: No obstruction. No focal perienteric or pericolonic stranding is appreciated. The appendix is visualized and appears unremarkable. Vascular: Portosystemic shunting. Atherosclerosis. Lymph nodes: No gross lymphadenopathy. Peritoneum: No free air. No free fluid. : No acute abnormality appreciated. Soft tissues: No acute abnormality appreciated. Bones: No acute fracture. No lytic or blastic lesion. Degenerative changes of the spine and pelvis. Impression: 1. No acute abnormality appreciated. 2. Cirrhosis with stigmata of portal hypertension. 3. Mottled irregular region of the left kidney with calcifications, soft tissue, and irregular fat density. Appearance is most suggestive of prior cryoablation or radiofrequency ablation. Correlation with history and prior imaging recommended. Lumbar spine CT: Attestation: I have reviewed the pertinent imaging results. Radiologist's impression: Alignment: Slight rightward curvature. Mild L5-S1 retrolisthesis. No acute malalignment appreciated. Bones: No acute lumbar vertebral fracture. Lumbar levels: No acute abnormality appreciated. Multilevel degenerative changes are noted. Degenerative endplate changes are present with minimal erosive appearing endplate changes at L2-3, L4-5, and L5-S1, appearance most compatible with degenerative disease but suboptimally evaluated by this modality. No high-grade central stenosis is suspected. Soft tissues: No acute paraspinal abnormality is appreciated. Impression: [id number] multilevel degenerative changes of the spine. No high-grade central or foraminal stenosis is suspected. Mild irregularities along disc spaces and endplates favored to be degenerative in nature but would be better evaluated by contrast-enhanced MRI if there is strong clinical suspicion for discitis osteomyelitis. Transfer Discharge Sum: A/P Plan Cognitive capacity at transfer: Baseline Functional capacity at transfer: independent ambulation Overall status at transfer: patient is not back to baseline Discharge Plan Discharge Disposition: [facility] Discharge Location: [facility] Date of Admission: 02/26/25 08:58 Attending Provider on Discharge: Marika Obrien Primary Care Provider: Sammy Jha Condition: Unchanged Discharge Orders: Transfer of Care to Other Hospital (ORDER); Ordered 02/26/25 Ordered By: Marika Obrien Oxygen: No Oxygen Delivery Method: Nasal Cannula Oxygen Flow Rate: 1L Urinary Catheter: No Drips/Lines: peripheral IV Services not available here: Spine/Neuro/ID
--- NOTE | 2025-02-26 13:54 | REH.PT ---
PT eval & treat orders received. Chart Reviewed. Pt to transfer to [place]. Educated on transfer technique to avoid Lumbar flexion. Performed supine<>sit and STS transfer at [facility] with [facility]. No further PT in this environment at this time. D/C PT orders.
[2025-02-26 13:59] LABS: Erythrocyte SedimentationRate* 7 mm/hr (2-15)
[2025-02-26] MEDS: VANCOMYCIN 1.5 GM/300 ML 1.5 GM/300 ML PIGGYBACK IVPB (14:13)
--- NOTE | 2025-02-26 18:23 | PC.NURSE ---
Transfer: Patient pleasant and cooperative, alert and oriented. Patient is vitally stable, lungs clear, patient on 1 L of oxygen NS with sats 90-91%, BS WNL, IV running NS at 125. Patient at about 0843 this morning was in great pain 10/10, trembling and was feverish, tylenol and 0.5 mg of dilauded was given. MD was notified, and patient was still in 10/10 discomfort 30 minutes later, 0.5 mg of dilauded, toradol, and 0.5mg of ativan was given. Patient was later in a better stat rating pain about 3/10, patient was also able to tolerate MRI. Patient does not have much appetite eating half a slice of toast. Patient urinating by urinal well, and drinking fluids well. Patient signed transfer form and left for [place] by EMS at 1553. RN to RN report was given to nurse at [place].
[2025-02-27 22:07] LABS: Lyme ELISA Reflex 0.65 IV (<=0.90)
[2025-03-01 01:22] LABS: Anaplasma phagocyt PCR Not Detected
== END 2025-02-26 15:53 | disposition short-term general hospital (02) | DRG 872 ==
LOC: ED 02-26 00:20 → MEDSURG 02-26 01:00
PROVIDERS: Physician Assistant; Admitting Provider Internal Medicine; Emergency Provider Family Medicine; PCP Internal Medicine; Visit Provider Internal Medicine
DX: A41.89 Other specified sepsis (principal); K76.6 Portal hypertension; M46.26 Osteomyelitis of vertebra, lumbar region; M46.46 Discitis, unspecified, lumbar region; D69.6 Thrombocytopenia, unspecified; K75.4 Autoimmune hepatitis; K74.69 Other cirrhosis of liver; I10 Essential (primary) hypertension; E89.0 Postprocedural hypothyroidism
CPT/HCPCS: 36415; 71045; 72132; 72158; 74177; 80048; 80053; 80076; 81001; 83605; 83690; 85025; 85651; 86140; 86618; 86789; 87040; 87086; 87186; 87468; 87469; 87484; 87631; 87798; 87800; 94761; 99284; 99285; A9270; A9575; G0378; J1171; J1885; J2060; J2543; J3375; J7030; J7050; J7512; Q9967

== ENCOUNTER 2025-02-26 15:33 | Outpatient (CLI) | payer MEDICARE, BC, SELFPAY | END 2025-02-26 15:34 | disposition home or self-care (01) | LOC: AMB 02-27 13:08 | PROVIDERS: PCP Internal Medicine; Visit Provider Emergency Medicine Emergency Medical Services | DX: M46.40 Discitis, unspecified, site unspecified (principal); A41.9 Sepsis, unspecified organism; R50.9 Fever, unspecified | CPT/HCPCS: A0425; A0427 ==